=== PATIENT | female | born 1970 | race African-American/Black ===

== ENCOUNTER 2019-01-06 18:21 | Inpatient (IN) | payer MEDICARE, OTHER ==
[~2019-01-06] VITALS: Ht 167.6 cm; Wt 43.8 kg
[~2019-01-06 18:21] MED LIST: BACL20TA PO; DOXE50CA4 PO; IBUPROFEN PO; TOLT2CAP PO
[2019-01-06 18:54] LABS: *BILIRUBIN,URIN NEGATIVE (NEGATIVE); *CLARITY,URINE CLEAR (CLEAR); *COLOR,URINE YELLOW (YELLOW); *KETONES,URINE TRACE (NEGATIVE); *UROBILINOGEN,URINE 0.2 E.U./dl (NORMAL); LEUKOCYTE ESTERASE ,URINE 1+ (NEGATIVE); NITRITE, URINE POSITIVE (NEGATIVE); PH,URINE 6.5 (5.0-8.0); UGLUCOSE NEGATIVE (NEGATIVE)
[2019-01-06 18:57] LABS: *BLOOD, URINE NEGATIVE (NEGATIVE)
[2019-01-06 19:03] LABS: RBC,URINE 0-3 /HPF (0-3)
[2019-01-06 19:04] LABS: BACTERIA,URINE MANY /HPF (NONE SEEN); MUCUS,URINE FEW /LPF (0-FEW); SQUAMOUS EPITHELIAL CELL,UR FEW /HPF (NONE SEEN)
[2019-01-06] MEDS ORDERED: VANCOMYCIN IV 200 ML ONE (19:12)
[2019-01-06] MEDS ORDERED: IPRATROPIUM BROMIDE 0.5 MG/2.5 ML NEBU NEB ONE (19:15)
[2019-01-06] MEDS ORDERED: ALBUTEROL SULFATE 2.5 MG/3 ML NEBU NEB ONE (19:15)
[2019-01-06] MEDS ORDERED: VANCOMYCIN IV 1,000 MG in IV DEXTROSE 5% 250 ML IV ONE (19:15)
[2019-01-06] MEDS ORDERED: METRONIDAZOLE 500 MG/NS 100 ML PIGGYBACK IV ONE (19:15)
[2019-01-06 19:16] LABS: BASOPHILS # (AUTO) 0.1 K/uL (0.0-8.0); EOSINOPHILS # (AUTO) 0.2 K/uL (0.0-0.7); EOSINOPHILS % (AUTO) 2.7 % (0.0-7.0); HEMATOCRIT 38.9 % (31.2-41.9); LYMPHOCYTES # (AUTO) 1.8 K/uL (20.0-40.0); LYMPHOCYTES % (AUTO) 26.1 % (20.5-51.5); MEAN CORPUSCULAR HGB CONC 33 g/dL (32.3-35.6); MEAN CORPUSCULAR VOLUME 96.2 fL (75.5-95.3); MONOCYTES # (AUTO) 0.6 K/uL (2.0-10.0); MONOCYTES % (AUTO) 9.2 % (0.0-11.0); NEUTROPHILS # (AUTO) 4.2 K/uL (1.8-8.9); PLATELET COUNT (AUTO) 202 K/uL (179-408); RED BLOOD CELL COUNT(AUTO) 4.05 MIL/uL (3.63-4.92); WHITE BLOOD COUNT (AUTO) 6.8 K/uL (3.8-11.8)
[2019-01-06 19:23] LABS: CARBON DIOXIDE 25 mmol/L (21-32); CHLORIDE 106 mmol/L (98-107); CREATININE 0.4 mg/dL (0.6-1.3); GLUCOSE 77 mg/dL (74-106); POTASSIUM 3.9 mmol/L (3.5-5.1); UREA NITROGEN, BLOOD 19 mg/dL (7-18)
[2019-01-06] MEDS ORDERED: ALBUTEROL SULFATE 2.5 MG/3 ML NEBU ONE (19:24)
[2019-01-06] MEDS ORDERED: IPRATROPIUM BROMIDE 0.5 MG/2.5 ML NEBU ONE (19:24)
[2019-01-06 19:29] LABS: ALANINE AMINOTRANSFERASE 22 U/L (14-59); ALKALINE PHOSPHATASE 94 U/L (50-136); ASPARTATE AMINOTRANSFERASE 18 U/L (15-37); BILIRUBIN,DIRECT 0.1 mg/dL (0.0-0.2); BILIRUBIN,TOTAL 0.3 mg/dL (0.2-1.0); TOTAL PROTEIN, SERUM 7.1 g/dL (6.4-8.2)
[2019-01-06] MEDS ORDERED: CEFTRIAXONE 1 G in IV DEXTROSE 5% 50 ML IV ONE (20:15)
[2019-01-06] MEDS ORDERED: LEVE500T9 PO ×2 (20:16)
[2019-01-06] MEDS ORDERED: DOXE10CA2 PO (20:16)
[2019-01-06] MEDS ORDERED: BACL10TA PO (20:16)
[2019-01-06] MEDS ORDERED: CEFTRIAXONE /D5W 50ML IVPB **ER PYXIS IV ONE (20:19)
[2019-01-06] MEDS ORDERED: METRONIDAZOLE 500 MG/NS 100ML 100 ML IV ONE (20:48)
[2019-01-06 21:35] VITALS: BP 110/93
[2019-01-06] MEDS ORDERED: BACLOFEN 10 MG TABLET PO ONE (23:15)
[2019-01-06] MEDS ORDERED: LEVETIRACETAM 500 MG TABLET PO ONE (23:15)
[2019-01-06] MEDS ORDERED: ACETAMINOPHEN 325 MG TABLET PO PRN (23:15)
[2019-01-06] MEDS ORDERED: MORPHINE SULFATE 2 MG/1 ML DISP.SYRIN IV PRN (23:15)
[2019-01-06] MEDS ORDERED: DOXEPIN 10 MG CAPSULE PO ONE (23:15)
[2019-01-06] MEDS ORDERED: ONDANSETRON 4 MG/2 ML VIAL IV PRN (23:15)
[2019-01-06] MEDS ORDERED: MAGNESIUM HYDROXIDE 30 ML LIQUID UDC PO PRN (23:15)
[2019-01-06] MEDS: ZOLPIDEM 5 MG TABLET PO PRN (23:45)
[2019-01-07] MEDS ORDERED: PIPERACILLIN/TAZOBACTAM/D5W 100 ML IV ONE
[2019-01-07] MEDS: PIPERACILLIN SODIUM/TAZOBACTAM 3.375 G in IV DEXTROSE 5% 50 ML IV SCH ×4 (00:08→22:27)
[2019-01-07 04:37] VITALS: BP 117/95
[2019-01-07 06:04] LABS: ALANINE AMINOTRANSFERASE 22 U/L (14-59); ALKALINE PHOSPHATASE 101 U/L (50-136); ASPARTATE AMINOTRANSFERASE 17 U/L (15-37); BILIRUBIN,TOTAL 0.5 mg/dL (0.2-1.0); CARBON DIOXIDE 21 mmol/L (21-32); CHLORIDE 106 mmol/L (98-107); CREATININE 0.4 mg/dL (0.6-1.3); GLUCOSE 88 mg/dL (74-106); MAGNESIUM 1.9 mg/dL (1.8-2.4); PHOSPHOROUS 2.6 mg/dL (2.5-4.9); POTASSIUM 3.5 mmol/L (3.5-5.1); TOTAL PROTEIN, SERUM 7.6 g/dL (6.4-8.2); UREA NITROGEN, BLOOD 13 mg/dL (7-18)
[2019-01-07 06:05] LABS: BASOPHILS % (AUTO) 0.7 % (0.0-2.0); EOSINOPHILS # (AUTO) 0.2 K/uL (0.0-0.7); EOSINOPHILS % (AUTO) 3.2 % (0.0-7.0); HEMATOCRIT 42.6 % (31.2-41.9); LYMPHOCYTES # (AUTO) 1.7 K/uL (20.0-40.0); LYMPHOCYTES % (AUTO) 29.7 % (20.5-51.5); MEAN CORPUSCULAR HEMOGLOBIN 31.9 uug (24.7-32.8); MEAN CORPUSCULAR HGB CONC 33 g/dL (32.3-35.6); MONOCYTES # (AUTO) 0.4 K/uL (2.0-10.0); MONOCYTES % (AUTO) 7.5 % (0.0-11.0); NEUTROPHILS # (AUTO) 3.4 K/uL (1.8-8.9); NEUTROPHILS % (AUTO) 58.9 % (38.5-71.5); PLATELET COUNT (AUTO) 211 K/uL (179-408); RED BLOOD CELL COUNT(AUTO) 4.39 MIL/uL (3.63-4.92); WHITE BLOOD COUNT (AUTO) 5.7 K/uL (3.8-11.8)
[2019-01-07] MEDS: PANTOPRAZOLE SODIUM 40 MG TABLET.DR PO SCH (06:09)
[2019-01-07] MEDS: ALBUTEROL SULFATE 2.5 MG/3 ML NEBU NEB PRN ×2 (06:15→20:58)
[2019-01-07] MEDS: IPRATROPIUM BROMIDE 0.5 MG/2.5 ML NEBU NEB PRN ×2 (06:15→20:58)
[2019-01-07] MEDS: BACLOFEN 10 MG TABLET PO SCH ×4 (08:37→21:36)
[2019-01-07] MEDS: LEVETIRACETAM 500 MG TABLET PO SCH ×2 (08:37→21:35)
[2019-01-07] MEDS ORDERED: INFLUENZA VACCINE 2019-2020 0.5 ML DISP.SYRIN IM ONE (09:00)
[2019-01-07] MEDS: HYDROCODONE/APAP 5-325MG TABLET PO PRN ×2 (13:11→21:36)
[2019-01-07] MEDS: VANCOMYCIN IV 750 MG in IV DEXTROSE 5% 250 ML IV SCH (13:11)
[2019-01-07 16:22] VITALS: BP 93/59
[2019-01-07] MEDS ORDERED: Z GUARD REMEDY PASTE 57 GM TUBE TOP PRN (19:15)
[2019-01-07 19:45] VITALS: BP 127/71
[2019-01-07] MEDS: DOCUSATE SODIUM 100 MG CAPSULE PO SCH (21:00)
[2019-01-07] MEDS: DOXEPIN 10 MG CAPSULE PO SCH (21:35)
[2019-01-07] MEDS: ZOLPIDEM 5 MG TABLET PO PRN (22:27)
[2019-01-08] MEDS: VANCOMYCIN IV 750 MG in IV DEXTROSE 5% 250 ML IV SCH ×2 (01:01→14:53)
[2019-01-08 05:42] VITALS: BP 98/42
[2019-01-08] MEDS: PIPERACILLIN SODIUM/TAZOBACTAM 3.375 G in IV DEXTROSE 5% 50 ML IV SCH (05:59)
[2019-01-08] MEDS: PANTOPRAZOLE SODIUM 40 MG TABLET.DR PO SCH (06:00)
[2019-01-08] MEDS: BACLOFEN 10 MG TABLET PO SCH ×4 (08:29→20:04)
[2019-01-08] MEDS: LEVETIRACETAM 500 MG TABLET PO SCH ×2 (08:29→20:03)
[2019-01-08 11:00] VITALS: BP 99/63
[2019-01-08] MEDS: MEROPENEM 0.5 G in IV NORMAL SALINE 50 ML IV SCH ×2 (11:11→18:33)
[2019-01-08 15:12] VITALS: BP 93/56
[2019-01-08] MEDS: IPRATROPIUM BROMIDE 0.5 MG/2.5 ML NEBU NEB PRN (18:01)
[2019-01-08] MEDS: ALBUTEROL SULFATE 2.5 MG/3 ML NEBU NEB PRN (18:01)
[2019-01-08] MEDS: DOCUSATE SODIUM 100 MG CAPSULE PO SCH ×2 (20:03→21:00)
[2019-01-08] MEDS: DOXEPIN 10 MG CAPSULE PO SCH (20:03)
[2019-01-08 20:09] VITALS: BP 90/58
[2019-01-08] MEDS: ZOLPIDEM 5 MG TABLET PO PRN (23:04)
[2019-01-09] MEDS: MEROPENEM 0.5 G in IV NORMAL SALINE 50 ML IV SCH ×3 (02:03→18:27)
[2019-01-09 04:43] VITALS: BP 100/65
[2019-01-09] MEDS: VANCOMYCIN IV 750 MG in IV DEXTROSE 5% 250 ML IV SCH ×2 (04:55→05:57)
[2019-01-09] MEDS: PANTOPRAZOLE SODIUM 40 MG TABLET.DR PO SCH (06:00)
[2019-01-09] MEDS ORDERED: MERO500V21 IV (08:42)
[2019-01-09] MEDS: BACLOFEN 10 MG TABLET PO SCH ×4 (08:48→20:36)
[2019-01-09] MEDS: LEVETIRACETAM 500 MG TABLET PO SCH ×2 (08:48→20:36)
[2019-01-09 11:37] VITALS: BP 138/83
[2019-01-09 15:44] VITALS: BP 133/79
[2019-01-09] MEDS ORDERED: VANCOMYCIN IV 750 MG in IV DEXTROSE 5% 250 ML IV SCH (18:00)
[2019-01-09 19:43] VITALS: BP 108/62
[2019-01-09] MEDS: DOXEPIN 10 MG CAPSULE PO SCH (20:36)
[2019-01-09] MEDS: ALBUTEROL SULFATE 2.5 MG/3 ML NEBU NEB PRN (20:51)
[2019-01-09] MEDS: IPRATROPIUM BROMIDE 0.5 MG/2.5 ML NEBU NEB PRN (20:51)
[2019-01-09] MEDS: DOCUSATE SODIUM 100 MG CAPSULE PO SCH (21:00)
[2019-01-09] MEDS ORDERED: CULTURELLE CAPSULE PO SCH (21:00)
== END 2019-01-09 21:50 | disposition home health service (06) | DRG 757 ==
LOC: ER 18:21 → MEDSURG3 21:03
PROVIDERS: ADMIT Internal Medicine; ATTEND Internal Medicine
PROC: 05HY33Z Insertion of Infusion Device into Upper Vein, Percutaneous Approach (ICD-10-PCS; principal; 2019-01-07)
DX: N76.4 Abscess of vulva (principal); G82.50 Quadriplegia, unspecified; D68.69 Other thrombophilia; S14.104S Unspecified injury at C4 level of cervical spinal cord, sequela; W34.00XS Accidental discharge from unspecified firearms or gun, sequela; N30.90 Cystitis, unspecified without hematuria; G89.29 Other chronic pain; M62.838 Other muscle spasm; G40.909 Epilepsy, unspecified, not intractable, without status epilepticus; Z99.3 Dependence on wheelchair; Z93.3 Colostomy status; Z90.49 Acquired absence of other specified parts of digestive tract; Z79.899 Other long term (current) drug therapy
CPT/HCPCS: 36415; 71045; 83735; 84100; 85025; 85730; 87077; 87086; 90686; 93005; 94640; 94664; A4663; G0378; J0696; J2185; J2543; J3370; J3490; J3590; J7050; J7060

== ENCOUNTER 2023-07-29 02:58 | Emergency (ER) | payer OTHER ==
[~2023-07-29] VITALS: Ht 165.1 cm; Wt 45.4 kg
[~2023-07-29 02:58] MED LIST changes: +BACL10TA PO; -BACL20TA PO; +DOXE10CA2 PO; -DOXE50CA4 PO; -IBUPROFEN PO; +LEVE500T9 PO; +MERO500V21 IV; -TOLT2CAP PO
[2023-07-29] MEDS ORDERED: CLINDAMYCIN 600 MG PIGGYBACK**ER OMNI IV ONE ×2 (03:50→04:44)
[2023-07-29] MEDS ORDERED: MEROPENEM 1GM/NS 100ML IVPB **ER PYXIS ONLY IV ONE (03:50)
[2023-07-29] MEDS ORDERED: DEXAMETHASONE SOD PHOSPHATE 10 MG INJ ONE (03:50)
[2023-07-29] MEDS: DEXAMETHASONE SOD PHOSPHATE 4 MG INJ IV ONE (03:53)
[2023-07-29] MEDS: IV NORMAL SALINE 1000 ML BAG IV ONE (03:55)
[2023-07-29 04:17] LABS: BASOPHILS % (AUTO) 0.6 % (0.0-2.0); EOSINOPHILS # (AUTO) 0.1 K/uL (0.0-0.7); EOSINOPHILS % (AUTO) 1.8 % (0.0-7.0); HEMOGLOBIN 11.1 g/dL (10.9-14.3); LYMPHOCYTES # (AUTO) 2.2 K/uL (0.8-4.8); LYMPHOCYTES % (AUTO) 30.4 % (20.5-51.5); MEAN CORPUSCULAR HEMOGLOBIN 32.7 uug (24.7-32.8); MEAN CORPUSCULAR HGB CONC 34 g/dL (32.3-35.6); MEAN CORPUSCULAR VOLUME 96.8 fL (75.5-95.3); MONOCYTES % (AUTO) 13.5 % (0.0-11.0); NEUTROPHILS # (AUTO) 3.9 K/uL (1.8-8.9); NEUTROPHILS % (AUTO) 53.7 % (38.5-71.5); PLATELET COUNT (AUTO) 149 K/uL (179-408); RED BLOOD CELL COUNT(AUTO) 3.41 MIL/uL (3.63-4.92); RED CELL DISTRIBUTION WIDTH 12.9 % (12.3-17.7); WHITE BLOOD COUNT (AUTO) 7.3 K/uL (3.8-11.8)
[2023-07-29 04:19] LABS: DIFFERENTIAL COMMENT 1
[2023-07-29] MEDS: CLINDAMYCIN PHOSPHATE IV 600 MG in IV DEXTROSE 5% 100 ML IV ONE (04:20)
[2023-07-29 04:21] LABS: *BILIRUBIN,URIN NEGATIVE (NEGATIVE); *CLARITY,URINE CLEAR (CLEAR); *COLOR,URINE YELLOW (YELLOW); *KETONES,URINE NEGATIVE (NEGATIVE); *PROTEIN,URINE 1+ (NEGATIVE); *UROBILINOGEN,URINE 0.2 E.U./dl (NORMAL); LEUKOCYTE ESTERASE ,URINE 3+ (NEGATIVE); NITRITE, URINE NEGATIVE (NEGATIVE); UGLUCOSE NEGATIVE (NEGATIVE)
[2023-07-29 04:23] LABS: CALCIUM 9.6 mg/dL (8.5-10.1); CARBON DIOXIDE 25 mmol/L (21-32); CHLORIDE 101 mmol/L (98-107); CREATININE 0.4 mg/dL (0.6-1.3); GLUCOSE 103 mg/dL (74-106); POTASSIUM 3.5 mmol/L (3.5-5.1); SODIUM SERUM 135 mmol/L (136-145); UREA NITROGEN, BLOOD 16 mg/dL (7-18)
[2023-07-29 04:29] LABS: *BLOOD, URINE TRACE (NEGATIVE)
[2023-07-29 04:35] LABS: ALANINE AMINOTRANSFERASE 22 U/L (14-59); ALKALINE PHOSPHATASE 101 U/L (50-136); ASPARTATE AMINOTRANSFERASE 12 U/L (15-37); BILIRUBIN,DIRECT 0.1 mg/dL (0.0-0.2); BILIRUBIN,TOTAL 0.5 mg/dL (0.2-1.0); NT-PRO BNP 270 pg/mL (0-125)
[2023-07-29] MEDS ORDERED: LACO100T2 PO (04:35)
[2023-07-29] MEDS ORDERED: LEVE500T83 PO (04:35)
[2023-07-29] MEDS: MEROPENEM 1 G in IV NORMAL SALINE 100 ML IV ONE (04:51)
[2023-07-29 04:55] LABS: RBC,URINE 0-3 /HPF (0-3); WBC,URINE 50-80 /HPF (0-3)
[2023-07-29 04:56] LABS: BACTERIA,URINE MANY /HPF (NONE SEEN); SQUAMOUS EPITHELIAL CELL,UR MODERATE /HPF (NONE SEEN)
[2023-07-29] MEDS ORDERED: ONDANSETRON 4 MG/2 ML VIAL IV PRN (06:15)
[2023-07-29] MEDS ORDERED: ACETAMINOPHEN 325 MG TABLET PO PRN (06:15)
[2023-07-29] MEDS ORDERED: IV NS 1000 ML 1,000 ML IV PRN (06:15)
[2023-07-29] MEDS ORDERED: CIPR-262 PO (06:34)
[2023-07-29 06:59] VITALS: BP 110/63; TEMP 98; O2SAT 100
[2023-07-29] MEDS ORDERED: MEROPENEM 1 G in IV NORMAL SALINE 100 ML IV SCH (14:00)
== END 2023-07-29 07:00 | disposition home or self-care (01) ==
LOC: ER 03:14
DX: N39.0 Urinary tract infection, site not specified (principal); E86.0 Dehydration; G82.50 Quadriplegia, unspecified; Z79.899 Other long term (current) drug therapy
CPT/HCPCS: 99285; 74176; 96365; 71045; 96367; 96375; 80076; 80048; 81001; 83880; 85025; 84145; 85730; 87040 ×2; 84484; 36415; 51702; 83605; 93005; J3490 ×3; J1100; J2185; J7040